=== PATIENT | female | born 1930 | race Caucasian/White ===

== ENCOUNTER 2017-12-05 10:35 | Emergency (ER) | payer MEDICARE, BC ==
[~2017-12-05 10:35] MED LIST: ADVAIR INHALER; ALBU2.5V36 INH; ALBU8.5H12 IH; AMLO-96 PO; AMLO2.5T75 PO; APIX2.5T PO; APIX5TAB PO; ASPI-715 PO; ASPI-757 PO; CALC-29 PO; CALC600T63 PO; CALCIUM PO; DILT180T PO; DILT60CA5 PO; FLUT1DIS27 IH; FLUT1DIS28 IH; NEBI5TAB PO; OLME1TAB3 PO; OLME1TAB51 PO; OLME5TAB8 PO; PNEI IJ; PROM5SYR PO; SIMV-44 PO; SIMV-49 PO; SIMV5TAB56 PO
[2017-12-05] MEDS ORDERED: ALB6.7R INH (10:50)
[2017-12-05] MEDS ORDERED: BENA1TAB57 PO (10:50)
--- NOTE | 2017-12-05 10:56 | ER Report ---
History and Physical Time Seen By MD: 10:55 Hx. of Stated Complaint: WOKE UP WITH MIDLINE NECK PAIN YESTERDAY. DENIES INJURY OR TRAUMA. "I AM WORRIED IT IS MY HEART" HPI/ROS CHIEF COMPLAINT: neck and left shoulder pain HISTORY OF PRESENT ILLNESS: This is an 87 year old female. She is having pain in her neck posteriorly lower neck, and into the shoulder and left arm. This started yesterday. Woke up with the pain. Has not changed. Movement makes it worse. Not moving improves. She was worried that it was her heart. No trauma known. No prior problems with neck or back pain. She has not shortness of breath. No chest pain. She has atrial fibrillation and congestive heart failure. No fever or chills. No headache. No vision changes. No trouble swallowing. No sore throat or runny nose. No back pain. No other extremity pain. No recent activity changes. Never had neck problems in the past. Allergies: Coded Allergies: Sulfa (Sulfonamide Antibiotics) (Verified Adverse Reaction, Intermediate, NAUSEA AND VOMITING, 12/05/17) Home Meds Active Scripts Prednisolone (PREDNISOLONE) 15 Mg/5 Ml Syrp, 60 MG PO QDAY for 4 Days, #80 ML 0 Refills Prov:CHITO TOBAR MD 12/05/17 Hydrocodone/Acetaminophen 10/300 MG/15 ML (Lortab 10 mg-300 mg/15 ml Elxr) 473 Ml Solution, 1 TSP PO Q4H Y for PAIN, #120 ML 0 Refills Prov:CHITO TOBAR MD 12/05/17 Apixaban (ELIQUIS) 2.5 Mg Tablet, 1 TAB PO BID, #60 TAB Prov:MINA JOSEPH MD 11/16/17 Reported Medications Albuterol Sulfate (PROVENTIL HFA) 6.7 Gm Inh, 2 PUFF INH Q4-6H, INH 12/05/17 Benazepril/Hydrochlorothiazide (BENAZEPRIL-HCTZ 10-12.5 MG TAB) 1 Each Tablet, PO QDAY, TAB 12/05/17 Diltiazem HCl (Diltiazem ER) 180 Mg Tab.er.24h, 1 TAB PO BID 02/10/17 Fluticasone/Salmeterol (ADVAIR 100-50 DISKUS) 1 Each Disk.w.dev, 1 EACH IH BID 01/15/13 Discontinued Reported Medications Olmesartan/Hydrochlorothiazide (Olmesartan-Hctz 40-12.5 mg Tab) 40 Mg-12.5 Mg Tablet, 1 TAB PO DAILY 02/10/17 Calcium Carbonate/Vitamin D3 (Calcium 600 + Vit D 800 Tab) 1 Each Tablet, 1 TAB PO DAILY 02/10/17 Albuterol Sulfate 0.083% (ALBUTEROL SULFATE 0.083%) 2.5 Mg/3 Ml Vial.neb, 2.5 MG INH QID, INH 02/10/17 Discontinued Scripts Promethazine HCl/Codeine (Prometh-Codein 6.25-10 mg/5 ml) 5 Ml Syrup, 1 TSP PO QHS Y for COUGH for 30 Days, #180 ML 0 Refills Prov:CALDERON NGUYEN MD 08/15/17 Reviewed Nurses Notes: Yes Hx Smoking: No Smoking Status: Never Smoker Constitutional Vital Sign - Last 24 Hours 12/05/17 12/05/17 12/05/17 12/05/17 10:44 10:45 11:00 11:15 Temp 98.7 Pulse 112 108 122 101 Resp 18 22 25 17 B/P (MAP) 159/91 166/99 (121) 151/96 (114) 143/77 (99) Pulse Ox 91 93 90 90 O2 Delivery Room Air 12/05/17 12/05/17 12/05/17 12/05/17 12:00 12:15 12:30 12:45 Pulse 79 74 75 83 Resp 18 14 16 14 B/P (MAP) 149/88 (108) 159/108 (125) 171/93 (119) 164/97 (119) Pulse Ox 98 98 98 98 12/05/17 12/05/17 13:00 13:15 Pulse 85 86 Resp 22 17 B/P (MAP) 170/80 (110) 167/90 (115) Pulse Ox 97 98 Physical Exam General Appearance: The patient is alert, has no immediate need for airway protection and no current signs of toxicity. Eyes: Pupils equal and round no injection. ENT: Normal oral mucosa. Moist mucous membranes. Neck: Neck is supple and non tender anteriorly. Respiratory: Chest is non tender, lungs are clear to auscultation. Cardiac: regular rate and rhythm Gastrointestinal: Abdomen is soft and non tender, bowel sounds normal. Musculoskeletal: There is tenderness in the lower cervical spine, both midline and paraspinous. Some in the trapezius and into the left shoulder and upper arm. Worsens with movement and with palpation. No tenderness of the thoracic spine. Neuro: Normal sensation in the left arm. Normal motor function. Skin: No rashes or lesions. DIFFERENTIAL DIAGNOSIS: After history and physical exam differential diagnosis was considered for neck pain of uncertain etiology, although appears most likely to be musculoskeletal. However, with her history will look at other pulmonary or cardiac causes. Infectious appears less likely. Medical Decision Making Data Points Result Diagram: 12/05/17 1057 12/05/17 1057 Laboratory Hematology Test 12/05/17 10:57 Red Blood Count 4.63 M/uL (4.17-5.56) Mean Corpuscular Volume 95.1 fL (80.0-96.0) Mean Corpuscular Hemoglobin 32.5 pg (26.0-33.0) Mean Corpuscular Hemoglobin Concent 34.2 g/dL (32.0-36.0) Red Cell Distribution Width 13.7 % (11.5-14.5) Mean Platelet Volume 9.0 fL (7.2-11.1) Neutrophils (%) (Auto) 60.3 % (39.4-72.5) Lymphocytes (%) (Auto) 25.6 % (17.6-49.6) Monocytes (%) (Auto) 10.8 % (4.1-12.4) Eosinophils (%) (Auto) 2.2 % (0.4-6.7) Basophils (%) (Auto) 1.1 % (0.3-1.4) Nucleated RBC Relative Count (auto) 0.2 /100WBC Neutrophils # (Auto) 2.8 K/uL (2.0-7.4) Lymphocytes # (Auto) 1.2 K/uL (1.3-3.6) Monocytes # (Auto) 0.5 K/uL (0.3-1.0) Eosinophils # (Auto) 0.1 K/uL (0.0-0.5) Basophils # (Auto) 0.0 K/uL (0.0-0.1) Nucleated RBC Absolute Count (auto) 0.01 K/uL Peripheral Blood Smear No Y/N Erythrocyte Sedimentation Rate 10 mm/HOUR (0-30) Sodium Level 141 mmol/L (137-145) Potassium Level 3.6 mmol/L (3.5-5.0) Chloride Level 98 mmol/L (98-107) Carbon Dioxide Level 29 mmol/L (22-31) Blood Urea Nitrogen 16 mg/dl (7-18) Creatinine 0.90 mg/dl (0.52-1.04) Glomerular Filtration Rate Calc 59.5 Random Glucose 106 mg/dl (75-110) Calcium Level 9.5 mg/dl (8.4-10.2) Total Bilirubin 0.5 mg/dl (0.2-1.3) Aspartate Amino Transf (AST/SGOT) 26 U/L (0-35) Alanine Aminotransferase (ALT/SGPT) 21 U/L (0-56) Alkaline Phosphatase 78 U/L (0-126) Total Creatine Kinase 114 U/L (30-135) Troponin I < 0.012 ng/ml C-Reactive Protein < 0.5 mg/dl (<1.0) B-Type Natriuretic Peptide 136 pg/ml (0-100) Total Protein 7.1 gm/dl (6.3-8.2) Albumin 4.3 g/dl (3.5-5.0) Chemistry Test 12/05/17 10:57 White Blood Count 4.6 k/uL (4.5-11.0) Red Blood Count 4.63 M/uL (4.17-5.56) Hemoglobin 15.1 g/dL (12.0-16.0) Hematocrit 44.0 % (34.0-47.0) Mean Corpuscular Volume 95.1 fL (80.0-96.0) Mean Corpuscular Hemoglobin 32.5 pg (26.0-33.0) Mean Corpuscular Hemoglobin Concent 34.2 g/dL (32.0-36.0) Red Cell Distribution Width 13.7 % (11.5-14.5) Platelet Count 248 K/uL (150-450) Mean Platelet Volume 9.0 fL (7.2-11.1) Neutrophils (%) (Auto) 60.3 % (39.4-72.5) Lymphocytes (%) (Auto) 25.6 % (17.6-49.6) Monocytes (%) (Auto) 10.8 % (4.1-12.4) Eosinophils (%) (Auto) 2.2 % (0.4-6.7) Basophils (%) (Auto) 1.1 % (0.3-1.4) Nucleated RBC Relative Count (auto) 0.2 /100WBC Neutrophils # (Auto) 2.8 K/uL (2.0-7.4) Lymphocytes # (Auto) 1.2 K/uL (1.3-3.6) Monocytes # (Auto) 0.5 K/uL (0.3-1.0) Eosinophils # (Auto) 0.1 K/uL (0.0-0.5) Basophils # (Auto) 0.0 K/uL (0.0-0.1) Nucleated RBC Absolute Count (auto) 0.01 K/uL Peripheral Blood Smear No Y/N Erythrocyte Sedimentation Rate 10 mm/HOUR (0-30) Glomerular Filtration Rate Calc 59.5 Calcium Level 9.5 mg/dl (8.4-10.2) Total Bilirubin 0.5 mg/dl (0.2-1.3) Aspartate Amino Transf (AST/SGOT) 26 U/L (0-35) Alanine Aminotransferase (ALT/SGPT) 21 U/L (0-56) Alkaline Phosphatase 78 U/L (0-126) Total Creatine Kinase 114 U/L (30-135) Troponin I < 0.012 ng/ml C-Reactive Protein < 0.5 mg/dl (<1.0) B-Type Natriuretic Peptide 136 pg/ml (0-100) Total Protein 7.1 gm/dl (6.3-8.2) Albumin 4.3 g/dl (3.5-5.0) EKG/Imaging EKG Interpretation 12 lead EKG: Rhythm: Atrial fibrillation, rate 110 Karthaus: normal QRS: normal ST segments: Nonspecific Monitor Interpretation: Atrial Fibrillation Imaging Exam type: CHEST PA AND LAT History: neck and shoulder pain Comparison: August 15, 2013. Findings: The lungs are free of acute effusions, infiltrates or edema. Cardiac silhouette is mildly enlarged but unchanged. There is a right shoulder arthroplasty and mild degenerative changes of the thoracic spine IMPRESSION: 1. Myocardial megaly unchanged No evidence of acute pulmonary consolidation Report Dictated By: Suzi Gross MD at 12/05/2017 12:14 PM Exam type: SHOULDER MIN 2 VIEWS LEFT History: neck and shoulder pain Comparison: None. Findings: Two views of the left shoulder reveal no evidence of acute fracture or dislocation. There are moderate degenerative changes at the left AC joint and left glenohumeral joint. IMPRESSION: 1. No evidence of acute fracture-dislocation involving the left shoulder Moderate degenerative changes of the left glenohumeral joint and left AC joint Report Dictated By: Suzi Gross MD at 12/05/2017 12:11 PM Exam type: CERVICAL SPINE 2 OR 3 VIEW History: neck and shoulder pain Comparison: None. Findings: There is no evidence of acute fractures or subluxations in cervical spine. There are moderate degenerative changes at C1-2 at C5-6 and C6-7. Mild degenerative changes are seen at C3-4 and C4-5. There is no evidence of prevertebral soft tissue swelling. Surgical clips are seen along the right- sided the neck IMPRESSION: 1. 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 Discussed these with the patient and family. Will treat as musculoskeletal pain. I do not think using NSAIDs would be the right treatment for her, so instead with use a steroid burst. She cannot swallow pills, so will use prednisolone. Lortab Elixer to help with pain. Recommended follow-up this week for re-evaluation. Decision to Disposition Date: Dec 05, 2017 Decision to Disposition Time: 13:09 Depart Departure Latest Vital Signs Vital Signs Date Time Temp Pulse Resp B/P (MAP) Pulse Ox O2 Delivery O2 Flow Rate FiO2 12/05/17 13:15 86 17 167/90 (115) 98 12/05/17 10:44 98.7 Room Air Impression: Primary Impression: Neck and shoulder pain Condition: Improved Disposition: HOME OR SELF-CARE Referrals: MINA JOSEPH MD (PCP) New Scripts Prednisolone (PREDNISOLONE) 15 Mg/5 Ml Syrp 60 MG PO QDAY for 4 Days, #80 ML 0 Refills Prov: CHITO TOBAR MD 12/05/17 Hydrocodone/Acetaminophen 10/300 MG/15 ML (Lortab 10 mg-300 mg/15 ml Elxr) 473 Ml Solution 1 TSP PO Q4H Y for PAIN, #120 ML 0 Refills Prov: CHITO TOBAR MD 12/05/17 Patient Instructions: Musculoskeletal Pain (ED) Additional Instructions: We would like to have you take Prednisolone 15mg/5ml, take 20ml (60mg) once a day for 4 days. For pain you can take Tylenol, or you can take a stronger pain medicine called Lortab, but do not take both at the same time because the Lortab has Tylenol in it. Lortab elixer, take 1/2 teaspoon every 4 hours as needed for pain. Please follow-up with your primary care provider for re-evaluation later this week. CHITO TOBAR MD Dec 05, 2017 10:55
[2017-12-05] MEDS ORDERED: ASPIRIN 81 MG CHEW PO ONE (11:20)
[2017-12-05 11:26] LABS: PLATELET COUNT, AUTOMATED 248 K/uL (150-450)
--- NOTE | 2017-12-05 12:17 | RADIOLOGY IMAGING REPORT ---
FACILITY: [facility] - [place] PATIENT NAME: Pricilla Aranda : 1930 MR: [id number] V: [id number] EXAM DATE: ORDERING PHYSICIAN: CHITO TOBAR TECHNOLOGIST: [place] [facility] [place]: Pricilla Aranda : 1930 Visit/Account:[id number] Date of Sevice: 12/05/2017 Exam type: CERVICAL SPINE 2 OR 3 VIEW History: neck and shoulder pain Comparison: None. Findings: There is no evidence of acute fractures or subluxations in cervical spine. There are moderate degene rative changes at C1-2 at C5-6 and C6-7. Mild degenerative changes are seen at C3-4 and C4-5. There is no evidence of prevertebral soft tissue swelling. Surgical clips are seen along the right-sided the neck IMPRESSION: 1. 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
--- NOTE | 2017-12-05 12:18 | RADIOLOGY IMAGING REPORT ---
FACILITY: [facility] PATIENT NAME: Pricilla Aranda : 1930 MR: [id number] V: [id number] EXAM DATE: ORDERING PHYSICIAN: CHITO TOBAR TECHNOLOGIST: Location: [facility] - [place] Patient: Pricilla Aranda : 1930 Visit/Account:[id number] Date of Sevice: 12/05/2017 Exam type: SHOULDER MIN 2 VIEWS LEFT History: neck and shoulder pain Comparison: None. Findings: Two views of the left shoulder reveal no evidence of acute fracture or dislocation. There are moderate degenerative changes at the left AC joint and left glenohumeral joint. IMPRESSION: 1. No evidence of acute fracture-dislocation involving the left shoulder Moderate degenerative changes of the left glenohumeral joint and left AC joint Report Dictated By: Suzi Gross MD at 12/05/2017 12:11 PM Report E-Signed By: Suzi Gross MD at 12/05/2017 12:12 PM WSN:[email or web address]
--- NOTE | 2017-12-05 12:20 | RADIOLOGY IMAGING REPORT ---
FACILITY: [facility] - [place] PATIENT NAME: Pricilla Aranda : 1930 MR: [id number] V: [id number] EXAM DATE: ORDERING PHYSICIAN: CHITO TOBAR TECHNOLOGIST: [place] [facility] [place]ricilla Aranda : 1930 Visit/Account:[id number] Date of Sevice: 12/05/2017 Exam type: CHEST PA AND LAT History: neck and shoulder pain Comparison: August 15, 2013. Findings: The lungs are free of acute effusions, infiltrates or edema. Cardiac silhouette is mildly enlarged b ut unchanged. There is a right shoulder arthroplasty and mild degenerative changes of the thoracic s pine IMPRESSION: 1. Myocardial megaly unchanged No evidence of acute pulmonary consolidation Report Dictated By: Suzi Gross MD at 12/05/2017 12:14 PM Report E-Signed By: Suzi Gross MD at 12/05/2017 12:15 PM WSN:[email or web address]
[2017-12-05] MEDS ORDERED: PRED15SO56 PO (13:12)
[2017-12-05] MEDS ORDERED: HYDR473S9 PO (13:12)
[2017-12-05 13:15] VITALS: BP 167/90
--- NOTE | 2017-12-06 08:52 | EKG ---
FACILITY: PATIENT NAME: MONSE FAM : [id number] MR: [id number] V: [id number] EXAM DATE: ORDERING PHYSICIAN: CHITO TOBAR TECHNOLOGIST: PAYTON Galo Reason : CARDIAC Blood Pressure : / mmHG Vent. Rate : 110 BPM Atrial Rate : 085 BPM P-R Int : 000 ms QRS Dur : 072 ms QT Int : 334 ms P-R-T Axes : 000 058 054 degrees QTc Int : 452 ms Atrial fibrillation with rapid ventricular response Possible Anterior infarct (cited on or before 05-DEC-2017) Abnormal ECG When compared with ECG of 03-JUN-2013 00:34, LBBB has resolved Confirmed by ANITA TO ([id number]) on 12/06/2017 4:07:36 PM Referred By: JENNA Confirmed By:ANITA TO
== END 2017-12-05 13:30 | disposition home or self-care (01) ==
LOC: ER 10:36
DX: M54.2 Cervicalgia (principal); M25.512 Pain in left shoulder; I48.2 Chronic atrial fibrillation; I50.9 Heart failure, unspecified
CPT/HCPCS: 71046; 72040; 73030; 82550; 83880; 84484; 85025; 85651; 86140; 93005; 99283; A9270; 82040; 82247; 82310; 82374; 82435; 82565; 82947; 84075; 84132; 84155; 84295; 84450; 84460; 84520

== ENCOUNTER 2018-01-06 08:15 | Outpatient (RCR) | payer MEDICARE, BC ==
--- NOTE | 2017-12-15 07:24 | PT INITIAL EVALUATION ---
MEDICAL DIAGNOSIS: Cervical Pain, Cervical Radicular Pain TREATMENT DIAGNOSIS: Cervical Pain, Cervical Radicular Pain DATE OF ONSET: 12/07/17 SUBJECTIVE: Pricilla is a pleasant 87 year-old female presenting to physical therapy following a gradual 1-2 week onset of neck pain with occasional radiating down the L arm. Pt reports no RICHELLE, but that it just appeared one day and has been hurting since. Currently pt reports that her pain is rated as an 8/ 10 with pain located from the occiput down to the L AC joint. Pain is worse with turning her head, prolonged standing and walking with radiation reaching down to the level of the L elbow. Pain doesn't get much better than 8/10 at this time. Pt denies any headaches or numbness and tingling in the fingers or hand. REHAB PROBLEM LIST: Increased Pain Decreased ROM Decreased Function Decreased ADL's Decreased Mobility PREVIOUS MEDICAL HISTORY: See EMR OCCUPATION: Housewife OBJECTIVE: Posture: Forward head posture with B elevated and rounded shoulders ROM: Cervical ROM: Ext: pain with moderate restrictions, Flexion: slight pain with full ROM, B SB: slight pain with moderate restrictions, L rotation: pain with moderate restrictions, R rotation: slight pain with moderate restrictions, retraction: moderate restrictions with pain. Palpation: Pt is tender to palpation from the occiput along the paraspinals and parascapular muscles to the level of the L AC joint. Mobility: Raven repeated cervical motion assessment: flexion: no change, ext : no change, R SB: no change, L SB: pain centralized to the neck only. Other Objective Findings: Neck Pain & Disability Index: 29/50 ASSESSMENT: Pricilla shows signs and symptoms consistent with cervical pain with radiating symptoms down the L shoulder and arm. Physical therapy is indicated to address the above listed deficits in to return patient to prior level of function with ADL's. Short Term Goals In 2 weeks pt will centralize pain to the cervical spine only without radiation into the L arm to improve functional mobility with ADL's. In 3 weeks pt will decrease pain to <5/10 in the cervical spine for improved function with ADL's. In 4 weeks pt will improve cervical ROM to full without pain in all motions for improved function with ADL's. In 4 weeks pt will improve Neck Pain & Disability Index Score to >38/50 for improved function with ADL's. Patient's Goals Decrease pain and improve function. PLAN: Patient to be seen for Manual Therapy/STM/MET Strengthening/condition Ice/Heat Range of Motion Spinal Stabilization Ultrasound Stretching Iontophoresis Neuromuscular Re-ed Closed Chain Program Electrical Stim Posture/Body mechanics Biofeedback Home Exercise Program Mech./Manual Traction Therapeutic Activities 3x/Week for 4 Weeks If you have any questions, comments, or concerns about this report or plan, please contact me at . Thank you, Nadine Noyola, PT, DPT, CLT MTDD
[~2018-01-06 08:15] MED LIST changes: +ALB6.7R INH; +BENA1TAB57 PO; +CYCL-277 PO; +DICL100G39 TOP; +DILT180C73 PO; +HYDR473S9 PO; +PRED15SO56 PO
--- NOTE | 2018-01-06 08:44 | PT PLAN OF CARE ---
Physician: Suzan Valles MD Patient is being seen: 2-3x/Week Therapist: Nadine Noyola, PT, DPT, CLT Medical Diagnosis: Cervical Pain, Cervical Radicular Pain Treatment Diagnosis: Cervical Pain, Cervical Radicular Pain Date of Onset: 12/07/17 Date of Initial Evaluation: 12/15/17 Date patient was last seen: 01/06/18 Number of treatments: 10 Number of cancellations/No shows: 0 INTERVENTIONS: Manual Therapy/STM/MET Strengthening/condition Ice/Heat Range of Motion Spinal Stabilization Ultrasound Stretching Iontophoresis Neuromuscular Re-ed Closed Chain Program Electrical Stim Posture/Body mechanics Biofeedback Home Exercise Program Mech./Manual Traction Therapeutic Activities GOALS: In 2 weeks pt will centralize pain to the cervical spine only without radiation into the L arm to improve functional mobility with ADL's. In 3 weeks pt will decrease pain to <5/10 in the cervical spine for improved function with ADL's. In 4 weeks pt will improve cervical ROM to full without pain in all motions for improved function with ADL's. In 4 weeks pt will improve Neck Pain & Disability Index Score to <10/50 for improved function with ADL's. PATIENT'S GOAL: Decrease pain and improve function. Status of Patient's Goals: MET Patient Compliance: Excellent Prognosis: Good Reasons for discharge from therapy: Pricilla is to discharge from physical therapy at this time secondary to competition of 4/4 functional goals. At the time of discharge pt has no pain in her neck or shoulder and is compliant with her HEP. Pt is to follow up with PT if symptoms reoccur and keep up with independent exercise and changes to posture. Posture: Forward head posture with B elevated and rounded shoulders ROM: Cervical ROM: Ext: pain with moderate restrictions, Flexion: slight pain with full ROM, B SB: slight pain with moderate restrictions, L rotation: pain with moderate restrictions, R rotation: slight pain with moderate restrictions , retraction: moderate restrictions with pain. Outcome Measure: Neck Pain & Disability Index Score: 0/50 If you have any questions or concerns, please feel free to contact me at . Thank you, Nadine Noyola, PT, DPT, CLT [facility] NETWORKCornelio
== END 2018-01-06 14:23 | disposition home or self-care (01) ==
LOC: PT 08:15
PROVIDERS: ATTEND Family Medicine
DX: M54.2 Cervicalgia (principal); M54.12 Radiculopathy, cervical region
CPT/HCPCS: 97161

== ENCOUNTER → 2018-01-24 | Outpatient (CLI) | payer MEDICARE, BC | LOC: US 01:08 | PROVIDERS: ATTEND Family Medicine | DX: I48.91 Unspecified atrial fibrillation (principal); I51.7 Cardiomegaly; I34.0 Nonrheumatic mitral (valve) insufficiency; I37.1 Nonrheumatic pulmonary valve insufficiency | CPT/HCPCS: 93306 ==

== ENCOUNTER → 2018-02-02 | Outpatient (CLI) | payer MEDICARE, BC ==
[~2018-02-02] MED LIST changes: +IPRA3AMP21 IH; +PRED15SO5 PO
--- NOTE | 2018-02-02 09:41 | RADIOLOGY IMAGING REPORT ---
FACILITY: [facility] PATIENT NAME: Pricilla Aranda : 1930 MR: [id number] V: [id number] EXAM DATE: ORDERING PHYSICIAN: CALDERON NGUYEN TECHNOLOGIST: Location: [facility] Patient: Pricilla Aranda : 1930 Visit/Account:[id number] Date of Sevice: 02/02/2018 Exam type: CHEST PA AND LAT History: Hypoxia Comparison: December 05, 2017. Findings: Cardiac silhouette is enlarged but unchanged. There is mild blunting of both costophrenic angles con sistent with small bilateral pleural effusions. Coarse interstitial changes have increased in the le ft mid and lower lung ramos in addition to peribronchial thickening bilaterally. There is no eviden ce of overt pulmonary edema. Incidentally noted is a right shoulder arthroplasty and spondylotic ariane nges in the thoracolumbar spine IMPRESSION: 1. Small bilateral pleural effusions Cardiomegaly although no evidence of overt pulmonary edema Coarse interstitial changes have increased in the left mid and lower lung field in addition to a bron chial thickening bilaterally which may be secondary to an acute infectious/inflammatory process Report Dictated By: Suzi Gross MD at 02/02/2018 9:26 AM Report E-Signed By: Suzi Gross MD at 02/02/2018 9:38 AM WSN:[email or web address]
== END ==
LOC: RAD 08:23
PROVIDERS: ATTEND Family Medicine
DX: I51.7 Cardiomegaly (principal); J90 Pleural effusion, not elsewhere classified; R91.8 Other nonspecific abnormal finding of lung field
CPT/HCPCS: 71046

== ENCOUNTER → 2018-03-13 | Outpatient (CLI) | payer MEDICARE, BC ==
[~2018-03-13] MED LIST changes: +IPRA3AMP10 IH; -IPRA3AMP21 IH; -PRED15SO56 PO; +PRED15SO74 PO
== END ==
LOC: RESP 01:22
PROVIDERS: ATTEND Family Medicine
DX: J44.9 Chronic obstructive pulmonary disease, unspecified (principal)
CPT/HCPCS: 94060; 94726; 94729

== ENCOUNTER 2018-05-05 10:36 | Emergency (ER) | payer MEDICARE, BC ==
[~2018-05-05 10:36] MED LIST changes: +AMLO-111 PO; -AMLO-96 PO
--- NOTE | 2018-05-05 11:15 | ER Report ---
History and Physical Time Seen By : 11:14 Hx. of Stated Complaint: RT MOLAR REMOVED ABOUT NOON YESTERDAY. WONT STOP BREATHING. DENTIST OUT OF TOWN THAT PULLED TOOTH HPI/ROS CHIEF COMPLAINT: Post procedure leading HISTORY OF PRESENT ILLNESS: 87-year-old female patient presents to the emergency room with complaint of bleeding. Patient states that she had a molar that was removed yesterday. She states that she has been keeping pressure on it but has been bleeding a significant amount since then. She states that she does have a partial denture on the lower jaw and noted that the blood seemed to be coming from underneath that. She did take that out and put some gauze underneath that as well. She states that she does not seem to decrease considerably. She states that the bleeding was fairly significant her last 24 hours, however as she changed the pressure on the wound and came up to the emergency room the bleeding seems to have slowed down considerably. Allergies: Coded Allergies: Sulfa (Sulfonamide Antibiotics) (Verified Adverse Reaction, Intermediate, NAUSEA AND VOMITING, 05/05/18) Home Meds Active Scripts Diltiazem Hcl (DILTIAZEM 24HR ER) 180 Mg Cap.er.24h, 1 CAP PO BID for 90 Days, #180 CAP 4 Refills Prov:CALDERON NGUYEN MD 12/20/17 Apixaban (ELIQUIS) 5 Mg Tablet, 5 MG PO BID for 90 Days, #180 TAB 4 Refills Prov:CALDERON NGUYEN MD 12/19/17 Diclofenac Sodium 1% Gel (VOLTAREN 1% GEL) 100 Gm Gel..gram., 2 GM TOP QID for 30 Days, #1 TUBE 3 Refills Prov:CALDERON NGUYEN MD 12/13/17 Reported Medications Albuterol Sulfate (PROVENTIL HFA) 6.7 Gm Inh, 2 PUFF INH Q4-6H, INH 12/05/17 Benazepril/Hydrochlorothiazide (BENAZEPRIL-HCTZ 10-12.5 MG TAB) 1 Each Tablet, PO QDAY, TAB 12/05/17 Fluticasone/Salmeterol (ADVAIR 100-50 DISKUS) 1 Each Disk.w.dev, 1 EACH IH BID 01/15/13 Past Medical/Surgical History Patient has a past medical history of A. fib, hypertension, asthma. Patient has a surgical history of endarterectomy, shoulder surgery. Reviewed Nurses Notes: Yes Hx Smoking: No Smoking Status: Never Smoker Constitutional Vital Sign - Last 24 Hours 05/05/18 05/05/18 05/05/18 05/05/18 10:36 10:38 10:39 10:40 Temp 98.7 Pulse ??? 124 Resp 14 B/P (MAP) 125/76 (92) 125/76 Pulse Ox 68 O2 Delivery Room Air O2 Flow Rate 2.0 05/05/18 05/05/18 05/05/18 05/05/18 10:51 11:00 11:06 11:21 Pulse 115 110 124 B/P (MAP) 149/109 (122) Pulse Ox 96 97 97 05/05/18 05/05/18 05/05/18 05/05/18 11:30 11:36 11:51 12:00 Pulse 110 112 B/P (MAP) 122/103 (109) 129/80 (96) Pulse Ox 98 98 05/05/18 05/05/18 05/05/18 12:05 12:20 12:21 Pulse 107 111 B/P (MAP) 141/98 (112) Pulse Ox 97 97 Physical Exam General appearance: Alert no distress. Respiratory: Chest is non tender, lungs are clear to auscultation. Cardiac: Regular rate and rhythm. ENT: Tympanic membranes are pearly-laws, auditory canals are patent, mixed mucous membranes are moist. Patient doesn't have any obvious bleeding on examination. DIFFERENTIAL DIAGNOSIS: After history and physical exam differential diagnosis was considered for post procedure bleeding secondary to anticoagulation. Medical Decision Making ED Course/Re-evaluation ED Course Patient was admitted to an exam room, history and physical were obtained. Differential diagnoses were considered. On examination lungs are clear, heart is regular, patient does have no obvious bleeding. The packing was replaced and I let that set for 30 minutes. Reevaluation for some slight oozing, but no significant bleeding noted. Packing was reapplied and dentures are replaced. I would like the patient to keep the packing in place for the next 24 hours. She is instructed to go ahead and eat and drink, ballooning to soft foods. She is return to emergency room if bleeding worsens. Discusses patient and her they verbalized understanding and agreement with plan. Decision to Disposition Date: May 05, 2018 Decision to Disposition Time: 12:19 Depart Departure Latest Vital Signs Vital Signs Date Time Temp Pulse Resp B/P (MAP) Pulse Ox O2 Delivery O2 Flow Rate FiO2 05/05/18 12:21 141/98 (112) 05/05/18 12:20 111 97 05/05/18 10:40 2.0 05/05/18 10:39 98.7 14 Room Air Impression: Primary Impression: Postprocedural haemorrhage Condition: Improved Disposition: HOME OR SELF-CARE Referrals: CALDERON NGUYEN MD (PCP) Patient Instructions: Postoperative Bleeding (ED) Additional Instructions: Keep pressure on the socket for the next 24 hours. Return to the clinic if condition worsens. Follow up with your dentist as prescribed. Take your medications as prescribed. You may change the dressing as needed. AMERICA ALCALA May 05, 2018 11:14
[2018-05-05 12:21] VITALS: BP 141/98
== END 2018-05-05 12:31 | disposition home or self-care (01) ==
LOC: ER 11:21
DX: K91.841 Postprocedural hemorrhage of a digestive system organ or structure following other procedure (principal)
CPT/HCPCS: 99282

== ENCOUNTER → 2018-11-13 | Outpatient (CLI) | payer MEDICARE, BC ==
[~2018-11-13] MED LIST changes: -AMLO-111 PO; +AMLO-125 PO; +HYDR12.561 PO; +OXYGENHOME INH; +TRIA80OI13 TP
[2018-11-13 09:59] LABS: PLATELET COUNT, AUTOMATED 262 K/uL (150-450)
== END ==
LOC: LAB 08:10
PROVIDERS: ATTEND Family Medicine
DX: I10 Essential (primary) hypertension (principal)
CPT/HCPCS: 36415; 82310; 82374; 82435; 82565; 82947; 84132; 84295; 84520; 85025

== ENCOUNTER → 2018-11-22 | Outpatient (CLI) | payer MEDICARE, BC ==
[~2018-11-22] MED LIST changes: +BENZ200C15 PO; +PRED20TA6 PO; +ROBC PO
--- NOTE | 2018-11-22 13:18 | RADIOLOGY IMAGING REPORT ---
FACILITY: [facility] - [place] PATIENT NAME: Pricilla Aranda : 1930 MR: [id number] V: [id number] EXAM DATE: [id number] ORDERING PHYSICIAN: SHARLENE SPICER TECHNOLOGIST: Location: [facility] - [place] Patient: Pricilla Aranda : 1930 Visit/Account:[id number] Date of Sevice: 11/22/2018 Exam type: CHEST PA LAT History: Cough x2 weeks Comparison: February 02, 2018. Findings: There is no evidence of focal infiltrates or overt pulmonary edema. There is mild blunting of the le ft costophrenic angle although appears less prominent when compared the prior study and may actually represent pleural thickening. Cardiac silhouette is enlarged but unchanged. Again noted is a right shoulder arthroplasty IMPRESSION: 1. Mild blunting left costophrenic angle actually appears less prominent when compared the prior heidy dy and may be related to pleural thickening Cardiomegaly appears unchanged Report Dictated By: Suzi Gross MD at 11/22/2018 1:12 PM Report E-Signed By: Suzi Gross MD at 11/22/2018 1:14 PM WSN:[id number]
== END ==
LOC: RAD 11:17
PROVIDERS: ATTEND Nurse Practitioner Primary Care
DX: R05 Cough (principal)
CPT/HCPCS: 71046

== ENCOUNTER 2018-11-28 12:30 | Outpatient (RCR) | payer MEDICARE, BC | END 2018-11-29 | LOC: CARD 12:30 | PROVIDERS: ATTEND Family Medicine | DX: J44.9 Chronic obstructive pulmonary disease, unspecified (principal) | CPT/HCPCS: G0424 ×19 ==

== ENCOUNTER 2018-11-30 12:30 | Outpatient (RCR) | payer MEDICARE, BC | END 2018-11-30 18:00 | disposition home or self-care (01) | LOC: CARD 12:30 | PROVIDERS: ATTEND Family Medicine | DX: J44.9 Chronic obstructive pulmonary disease, unspecified (principal) | CPT/HCPCS: G0424 ==

== ENCOUNTER 2018-12-18 09:45 | Outpatient (RCR) | payer MEDICARE, BC ==
--- NOTE | 2018-11-16 11:31 | PT INITIAL EVALUATION ---
MEDICAL DIAGNOSIS: Cervical Pain, Cervical Radicular Pain TREATMENT DIAGNOSIS: Cervical Pain, Cervical Radicular Pain DATE OF ONSET: 11/16/18 SUBJECTIVE: Pricilla is a 88 year old female presenting to physical therapy following recent onset of L sided neck pain with radiating pain down the L arm to the level of the elbow. Pt reports that the pain started Tuesday (11/12/18) without any RICHELLE and has been slowly getting worse and going further down the arm. Pain is intense and rated as a 8/10 currently but goes up to a 9-10/10 at worst. Pain is relatively unchanged with ice or heat also has little response to Tylenol. Pt reports that her MD gave her some cream which tends to help for a short time. Pt is currently doing a pulmonary rehabilitation program and would like to continue with that throughout PT. REHAB PROBLEM LIST: Increased Pain Decreased ROM Decreased Function Decreased ADL's Decreased Mobility PREVIOUS MEDICAL HISTORY: See EMR OBJECTIVE: Posture: Pt presents with slight R side bend of the cervical spine with forward head and rounded shoulders B. ROM: Cervical ROM: flexion: no pain full motion (pain comes on with prolonged hold), ext: moderate restrictions with posterior pain, R SB: 22 degrees with posterior pain, L SB: 19 degrees with stiff feeling, R rot: 60 degrees with posterior pain, R rot: 45 degrees without pain. Palpation: Pt is ttp along the base of the occiput B as well as down the L side of the neck to just above the L elbow. L levator scap has significant tone. Special Tests: Repeated Cervical Motion: flex: increased pain in neck no change to arm, ext: increased pain in neck no change in arm, R SB: decreased pain in arm to shoulder level (pain returned to elbow with >3 sets of 15 reps), R rot: decreased pain in arm to shoulder level only, retraction with ext: increased pain in arm, retraction: no change. Other Objective Findings: Neck Pain and Disability Index: ASSESSMENT: Pt presents with signs and symptoms consistent with cervical dysfunction with radiating pain down the L UE. Physical therapy is indicated to address the above listed deficits to improve pt function with ADL's. Short Term Goals In 2 weeks pt will centralize pain to the cervical spine only without radiation to the L arm or shoulder for improved function with ADL's. In 4 weeks pt will decreased pain to <2/10 with ADL's for improved function. In 4 weeks pt will improve Neck Pain and Disability Index Score to 18/45 for improved function with ADL's. Patient's Goals Decrease neck pain, improve function. PLAN: Patient to be seen for Manual Therapy/STM/MET Strengthening/condition Ice/Heat Range of Motion Spinal Stabilization Ultrasound Stretching Iontophoresis Neuromuscular Re-ed Electrical Stim Posture/Body mechanics Biofeedback Home Exercise Program Mech./Manual Traction Therapeutic Activities 3x/Week for 4 Weeks If you have any questions, comments, or concerns about this report or plan, please contact me at . Thank you, Nadine Noyola, PT, DPT, CLT MTDD
--- NOTE | 2018-12-18 10:04 | PT PLAN OF CARE ---
Physician: Suzan Valles MD Patient is being seen: 2-3x/Week Therapist: Nadine Noyola, PT, DPT, CLT Medical Diagnosis: Cervical Pain, Cervical Radicular Pain Treatment Diagnosis: Cervical Pain, Cervical Radicular Pain Date of Onset: 11/16/18 Date of Initial Evaluation: 11/16/18 Date patient was last seen: 12/18/18 Number of treatments: 11 Number of cancellations/No shows: 0 INTERVENTIONS: Manual Therapy/STM/MET Strengthening/condition Ice/Heat Range of Motion Spinal Stabilization Ultrasound Stretching Iontophoresis Neuromuscular Re-ed Electrical Stim Posture/Body mechanics Biofeedback Home Exercise Program Mech./Manual Traction Therapeutic Activities GOALS: In 2 weeks pt will centralize pain to the cervical spine only without radiation to the L arm or shoulder for improved function with ADL's. In 4 weeks pt will decreased pain to <2/10 with ADL's for improved function. In 4 weeks pt will improve Neck Pain and Disability Index Score to 18/45 for improved function with ADL's. PATIENT'S GOAL: Decrease neck pain, improve function. Status of Patient's Goals: 3/3 MET Patient Compliance: Excellent Prognosis: Good Reasons for continuing therapy: Pricilla is to discharge from physical therapy at this time secondary to completion of 3/3 functional goals. At this time Pricilla has no pain in the neck and demonstrates full motion of the cervical spine. Scapulohumeral dysfunction shows significant improvement with decreased levator scapula and upper trap activation resulting in good scapular rotation without over elevation. Upon discharge pt is to continue with HEP for maintenance of function with ADL's and prevention of recurrence. ROM: Cervical ROM: Full in all directions without pain Outcome Measures: Neck Pain and Disability Index: 0/50 If you have any questions, please feel free to contact me at [phone]. Thank you, Nadine Noyola, PT, DPT, CLT LAURENT
[2018-12-18] MEDS ORDERED: HYDR12.561 PO (14:24)
== END 2018-12-18 18:00 | disposition home or self-care (01) ==
LOC: PT 09:45
PROVIDERS: ATTEND Family Medicine
DX: M54.2 Cervicalgia (principal); M54.12 Radiculopathy, cervical region
CPT/HCPCS: 97161